=== PATIENT | female | born 1970 | race Hispanic/Latino ===

== ENCOUNTER 2020-11-10 09:22 | Emergency (ER) | payer SELFPAY ==
[2020-11-10] MEDS ORDERED: hydrOXYzine 25 MG TAB ONE (09:43)
[2020-11-10] MEDS ORDERED: predniSONE 20 MG TAB ONE (09:43)
== END 2020-11-10 09:48 | disposition home or self-care (01) ==
LOC: BURERS 09:22
DX: S40.861A Insect bite (nonvenomous) of right upper arm, initial encounter (principal); L29.9 Pruritus, unspecified; F17.210 Nicotine dependence, cigarettes, uncomplicated; W57.XXXA Bitten or stung by nonvenomous insect and other nonvenomous arthropods, initial encounter
CPT/HCPCS: 99282; J7512